=== PATIENT | female | born 1935 | race Hispanic/Latino ===

== ENCOUNTER 2017-09-19 19:42 | Emergency (ER) | payer OTHER ==
[~2017-09-19 19:42] MED LIST: CHOL400T33 PO; CLOT15CR62 TP; LEVO250T2 PO; LEVO50TA11 PO; LISI10TA7 PO; LOVA40TA2 PO; SERT50TA12 PO
[2017-09-19] MEDS ORDERED: CHARCOAL/SORBITOL 50 GM/240 ML SUSP ONE (20:50)
== END 2017-09-20 01:40 | disposition home or self-care (01) ==
LOC: EDH 19:42
DX: T44.4X1A Poisoning by predominantly alpha-adrenoreceptor agonists, accidental (unintentional), initial encounter (principal); T44.1X1A Poisoning by other parasympathomimetics [cholinergics], accidental (unintentional), initial encounter; T43.221A Poisoning by selective serotonin reuptake inhibitors, accidental (unintentional), initial encounter; Y92.098 Other place in other non-institutional residence as the place of occurrence of the external cause
CPT/HCPCS: 93005

== ENCOUNTER 2019-05-05 17:49 | Emergency (ER) | payer MEDICARE ==
[2019-05-05 18:13] LABS: APPEARANCE,URINE Clear (CLEAR); BILIRUBIN,URINE Negative (NEGATIVE); COLOR,URINE Yellow (YELLOW); GLUCOSE, URINE (UA) >=1000 mg/dL (NEGATIVE); KETONES,URINE Negative (NEGATIVE); LEUKOCYTE ESTERASE ,URINE Small (NEGATIVE); NITRATE,URINE Negative (NEGATIVE); OCCULT BLOOD,URINE Negative (NEGATIVE); PROTEIN,URINE Trace mg/dL (NEGATIVE)
[2019-05-05 18:20] LABS: BACTERIA,URINE Few /HPF (None Seen); RBC,URINE 0-1 /HPF (0-1)
[2019-05-05 18:21] LABS: MUCUS,URINE Few LPF (None Seen)
[2019-05-05 19:04] LABS: BASOPHILS % (AUTO) 0.8 % (0.0-5.0); HEMATOCRIT 42.3 % (36-48); LYMPHOCYTES % (AUTO) 30.4 % (21.0-51.0); MEAN CORPUSCULAR HEMOGLOBIN 30.9 pg (27.0-33.0); MEAN CORPUSCULAR HGB CONC 33.6 g/dL (32.0-36.0); MONOCYTES % (AUTO) 10.2 % (3.0-13.0); NEUTROPHILS % (AUTO) 55.6 % (40.0-77.0); PLATELET COUNT (AUTO) 257 K/uL (130-400); WHITE BLOOD COUNT (AUTO) 7.5 K/uL (4.8-10.8)
[2019-05-05 19:19] LABS: CREATININE 1.5 mg/dL (0.5-1.5)
[2019-05-05 19:23] LABS: ALBUMIN 3.1 g/dL (3.5-5.0); BILIRUBIN,DIRECT 0.1 mg/dL (0.0-0.3); BILIRUBIN,TOTAL 0.2 mg/dL (0.2-1.0); TOTAL PROTEIN, SERUM 7.4 g/dL (6.0-8.3)
[2019-05-05 19:39] LABS: INR 0.99 (0.85-1.15); PARTIAL THROMBOPLASTIN TIME 25.1 SEC (26.3-35.5); PROTHROMBIN TIME 10.4 SEC (9.6-11.6)
[2019-05-05 19:40] LABS: B-TYPE NATRIURETIC PEPTIDE 114 pg/mL (0-100)
[2019-05-05] MEDS ORDERED: SODIUM CHLORIDE 0.9% 500ML 500 ML IV ONE (20:07)
[2019-05-05] MEDS ORDERED: CEFTRIAXONE SODIUM 1 GM ONE (21:14)
== END 2019-05-06 00:11 | disposition home or self-care (01) ==
LOC: EDH 17:49
DX: N30.00 Acute cystitis without hematuria (principal); R55 Syncope and collapse; E11.9 Type 2 diabetes mellitus without complications; I10 Essential (primary) hypertension; F03.90 Unspecified dementia, unspecified severity, without behavioral disturbance, psychotic disturbance, mood disturbance, and anxiety; Z91.041 Radiographic dye allergy status; Z79.4 Long term (current) use of insulin
CPT/HCPCS: 36415; 70450; 71045; 80048; 80076; 81001; 82550; 83605 ×2; 83690; 83880; 84484; 85025; 85610; 85730; 87088; 87804 ×2; 93005; 96374; 99285; J0696; J7040

== ENCOUNTER 2020-11-17 03:57 | Observation (INO) | payer OTHER, MEDICARE ==
[~2020-11-17] VITALS: Ht 160 cm; Wt 75.2 kg
[~2020-11-17 03:57] MED LIST changes: +ATOR20TA65 PO; -CHOL400T33 PO; -CLOT15CR62 TP; +DONE5TAB33 PO; +FLUO10CA23 PO; +GABA-529 PO; +HUM10VIA SQ; +LEVE250T2 PO; -LEVO250T2 PO; +LEVO500T89 PO; -LISI10TA7 PO; +LORA-192 PO; -LOVA40TA2 PO; +MEMA5TAB42 PO; +METR500T PO; -SERT50TA12 PO
[2020-11-17 04:35] LABS: BASOPHILS % (AUTO) 0.5 % (0.0-5.0); EOSINOPHILS % (AUTO) 2.9 % (0.0-8.0); HEMATOCRIT 36.7 % (36-48); LYMPHOCYTES % (AUTO) 28.1 % (21.0-51.0); MEAN CORPUSCULAR HEMOGLOBIN 32.2 pg (27.0-33.0); MEAN CORPUSCULAR HGB CONC 34.1 g/dL (32.0-36.0); MEAN CORPUSCULAR VOLUME 94.6 fL (79-99); MONOCYTES % (AUTO) 10.4 % (3.0-13.0); NEUTROPHILS % (AUTO) 57.2 % (40.0-77.0); PLATELET COUNT (AUTO) 192 K/uL (130-400); RED BLOOD CELL COUNT(AUTO) 3.88 MIL/uL (4.00-5.50); RED CELL DISTRIBUTION WIDTH 18.3 % (11.0-15.5)
[2020-11-17 04:50] LABS: ALBUMIN 1.9 g/dL (3.5-5.0); BILIRUBIN,TOTAL 2.4 mg/dL (0.2-1.0); CREATININE 1.1 mg/dL (0.5-1.5); CRP QUANTITATIVE 57.2 mg/L (0.00-9.0); TOTAL PROTEIN, SERUM 7.3 g/dL (6.0-8.3)
[2020-11-17 04:54] LABS: APPEARANCE,URINE Cloudy (CLEAR); BILIRUBIN,URINE Negative (NEGATIVE); COLOR,URINE Yellow (YELLOW); GLUCOSE, URINE (UA) 250 mg/dL (NEGATIVE); KETONES,URINE Negative (NEGATIVE); LEUKOCYTE ESTERASE ,URINE Large (NEGATIVE); NITRATE,URINE Negative (NEGATIVE); OCCULT BLOOD,URINE Negative (NEGATIVE); PH,URINE 6.5 (5.0-8.0); PROTEIN,URINE Trace mg/dL (NEGATIVE); UROBILINOGEN,URINE 0.2 mg/dL (0.2-1.0)
[2020-11-17 04:54] LABS: POTASSIUM 2.7 mmol/L (3.5-5.1)
[2020-11-17 05:00] LABS: INR 1.39 (0.85-1.15); PROTHROMBIN TIME 14.7 SEC (9.6-11.6)
[2020-11-17 05:01] LABS: PARTIAL THROMBOPLASTIN TIME 31.9 SEC (26.3-35.5)
[2020-11-17 05:12] LABS: BACTERIA,URINE Few /HPF (None Seen); RBC,URINE None Seen /HPF (0-1); SQUAMOUS EPITHELIAL CELL,UR Many /HPF (0-2); YEAST,URINE BUDDING Few /HPF (None Seen)
[2020-11-17 05:14] LABS: B-TYPE NATRIURETIC PEPTIDE 1230 pg/mL (0-100)
[2020-11-17] MEDS ORDERED: POTASSIUM CHLORIDE 10% ELIXIR 20 MEQ/15 ML UDCUP ONE ×2 (05:23→10:42)
[2020-11-17] MEDS ORDERED: ZOSYN 3.375GM+NS 50ML 50 ML IV ONE ×3 (05:23→23:36)
[2020-11-17] MEDS ORDERED: LEVOFLOXACIN 750 MG/D5W 150 ML 150 ML ONE (05:24)
[2020-11-17] MEDS: POTASSIUM CHLORIDE 20 MEQ ERTAB PO SCH ×2 (09:30→15:30)
[2020-11-17] MEDS ORDERED: GLUCAGON 1MG KIT 1 MG ML IM PRN (09:30)
[2020-11-17] MEDS ORDERED: DEXTROSE 50%-WATER 50 ML DISP.SYRIN IV PRN (09:30)
[2020-11-17] MEDS ORDERED: VANCOMYCIN 1GM+NS 250ML 250 ML IV SCH (09:30)
[2020-11-17] MEDS ORDERED: VANCOMYCIN PROTOCOL PER PHARMACY IV SCH (09:30)
[2020-11-17] MEDS ORDERED: VANCOMYCIN 1GM+NS 250ML 250 ML IV ONE (10:42)
[2020-11-17] MEDS ORDERED: IPRATROPIUM/ALBUTEROL SULFATE 3 ML SOLUTION IH ONE ×2 (10:54→15:28)
[2020-11-17] MEDS: IPRATROPIUM/ALBUTEROL SULFATE 3 ML SOLUTION IH SCH ×4 (10:56→21:37)
[2020-11-17] MEDS ORDERED: ENOXAPARIN SODIUM 40 MG/0.4 ML SYRINGE SQ SCH (11:00)
[2020-11-17] MEDS: PANTOPRAZOLE 40 MG/VIAL IVP SCH (11:00)
[2020-11-17] MEDS ORDERED: ONDANSETRON HCL 4 MG/2 ML VIAL IVP PRN (11:00)
[2020-11-17] MEDS ORDERED: MAGNESIUM 2GM PREMIX 50ML 50 ML IV PRN (11:00)
[2020-11-17 11:25] LABS: MAGNESIUM 1.4 mg/dL (1.80-2.40); POTASSIUM 3.3 mmol/L (3.5-5.1)
[2020-11-17] MEDS: INSULIN R PO SS1 SQ SCH ×3 (11:30→21:00)
[2020-11-17] MEDS: ZOSYN 3.375GM+NS 50ML 50 ML IV SCH ×2 (13:00→21:00)
[2020-11-17] MEDS ORDERED: PHARMACY COMMUNICATION MISC SCH (13:15)
[2020-11-17] MEDS ORDERED: PANTOPRAZOLE 40 MG/VIAL ONE (13:49)
[2020-11-17] MEDS ORDERED: POTASSIUM CHLORIDE 10% ELIXIR 20 MEQ/15 ML UDCUP PO PRN (19:00)
[2020-11-17] MEDS ORDERED: POTASSIUM CHLORIDE 20MEQ/100ML 100 ML IV PRN ×2 (19:00)
[2020-11-17] MEDS ORDERED: POTASSIUM CHLORIDE 20 MEQ ERTAB PO PRN (19:00)
[2020-11-17] MEDS ORDERED: LIDOCAINE HCL-MPF 1% 2ML VIAL IV PRN ×2 (19:00)
[2020-11-18 00:13] VITALS: BP 112/42
[2020-11-18] MEDS: IPRATROPIUM/ALBUTEROL SULFATE 3 ML SOLUTION IH SCH ×6 (01:44→22:11)
[2020-11-18] MEDS ORDERED: ASPI-1197 PO (02:35)
[2020-11-18] MEDS ORDERED: GABA-529 PO (02:35)
[2020-11-18] MEDS ORDERED: PANT40TA54 PO (02:35)
[2020-11-18 03:56] VITALS: BP 90/36
[2020-11-18] MEDS: ZOSYN 3.375GM+NS 50ML 50 ML IV SCH ×3 (05:18→21:00)
[2020-11-18 05:22] LABS: HEMATOCRIT 32.9 % (36-48); MEAN CORPUSCULAR HEMOGLOBIN 31.8 pg (27.0-33.0); MEAN CORPUSCULAR HGB CONC 32.5 g/dL (32.0-36.0); MEAN CORPUSCULAR VOLUME 97.6 fL (79-99); RED BLOOD CELL COUNT(AUTO) 3.37 MIL/uL (4.00-5.50); RED CELL DISTRIBUTION WIDTH 18.6 % (11.0-15.5); WHITE BLOOD COUNT (AUTO) 7.5 K/uL (4.8-10.8)
[2020-11-18] MEDS: INSULIN R PO SS1 SQ SCH ×4 (05:39→20:57)
[2020-11-18 05:58] LABS: ALBUMIN 1.5 g/dL (3.5-5.0); BILIRUBIN,DIRECT 1.5 mg/dL (0.0-0.3); CREATININE 1.2 mg/dL (0.5-1.5); MAGNESIUM 1.4 mg/dL (1.80-2.40); POTASSIUM 4.4 mmol/L (3.5-5.1); TOTAL PROTEIN, SERUM 6.2 g/dL (6.0-8.3)
[2020-11-18 08:20] VITALS: BP 162/122
[2020-11-18] MEDS ORDERED: FUROSEMIDE 10 MG/ML 4ML VIAL IV SCH (09:00)
[2020-11-18] MEDS: ENOXAPARIN SODIUM 40 MG/0.4 ML SYRINGE SQ SCH (09:36)
[2020-11-18] MEDS: FUROSEMIDE 10 MG/ML 2ML VIAL IV SCH ×2 (09:37→20:52)
[2020-11-18] MEDS: PANTOPRAZOLE 40 MG/VIAL IVP SCH (09:37)
[2020-11-18] MEDS ORDERED: MAGNESIUM 2GM PREMIX 50ML 50 ML IV SCH (11:30)
[2020-11-18] MEDS: SUCRALFATE 1 GM TABLET PO SCH ×3 (11:30→20:52)
[2020-11-18 12:00] VITALS: BP 154/126
[2020-11-18 16:00] VITALS: BP 113/49
[2020-11-18] MEDS: FLUOXETINE HCL 10 MG CAPSULE PO SCH (17:00)
[2020-11-18 19:45] VITALS: BP 86/45
[2020-11-18] MEDS: MEMANTINE HCL 5 MG TABLET PO SCH (20:52)
[2020-11-18] MEDS: LEVETIRACETAM 250 MG TABLET PO SCH (20:52)
[2020-11-18] MEDS ORDERED: DONEPEZIL HCL 5 MG TAB PO SCH (21:00)
[2020-11-19 00:14] VITALS: BP 98/37
[2020-11-19] MEDS: IPRATROPIUM/ALBUTEROL SULFATE 3 ML SOLUTION IH SCH ×4 (01:59→13:18)
[2020-11-19 04:07] VITALS: BP 100/39
[2020-11-19] MEDS: ZOSYN 3.375GM+NS 50ML 50 ML IV SCH ×2 (05:03→13:43)
[2020-11-19 05:34] LABS: BASOPHILS % (AUTO) 0.5 % (0.0-5.0); EOSINOPHILS % (AUTO) 4.3 % (0.0-8.0); HEMATOCRIT 32.7 % (36-48); LYMPHOCYTES % (AUTO) 24.3 % (21.0-51.0); MEAN CORPUSCULAR HGB CONC 31.8 g/dL (32.0-36.0); MEAN CORPUSCULAR VOLUME 97.3 fL (79-99); MONOCYTES % (AUTO) 10.9 % (3.0-13.0); NEUTROPHILS % (AUTO) 59.4 % (40.0-77.0); PLATELET COUNT (AUTO) 189 K/uL (130-400); RED BLOOD CELL COUNT(AUTO) 3.36 MIL/uL (4.00-5.50); RED CELL DISTRIBUTION WIDTH 18.4 % (11.0-15.5); WHITE BLOOD COUNT (AUTO) 8.2 K/uL (4.8-10.8)
[2020-11-19 05:49] LABS: ALBUMIN 1.6 g/dL (3.5-5.0); BILIRUBIN,TOTAL 2.1 mg/dL (0.2-1.0); CREATININE 1.4 mg/dL (0.5-1.5); MAGNESIUM 2.5 mg/dL (1.80-2.40); POTASSIUM 3.5 mmol/L (3.5-5.1); TOTAL PROTEIN, SERUM 6.5 g/dL (6.0-8.3)
[2020-11-19] MEDS ORDERED: LEVOTHYROXINE 50 MCG TABLET PO SCH (06:30)
[2020-11-19] MEDS: INSULIN R PO SS1 SQ SCH ×3 (07:30→16:30)
[2020-11-19 07:53] VITALS: BP 96/40
[2020-11-19] MEDS ORDERED: GABAPENTIN 100 MG CAPSULE PO SCH (09:00)
[2020-11-19] MEDS ORDERED: ASPIRIN 81MG TAB.CHEW PO SCH (09:00)
[2020-11-19] MEDS: FUROSEMIDE 10 MG/ML 2ML VIAL IV SCH (09:01)
[2020-11-19] MEDS: SUCRALFATE 1 GM TABLET PO SCH ×3 (09:01→16:30)
[2020-11-19] MEDS: PANTOPRAZOLE 40 MG/VIAL IVP SCH (09:01)
[2020-11-19] MEDS: FLUOXETINE HCL 10 MG CAPSULE PO SCH (09:02)
[2020-11-19] MEDS: ENOXAPARIN SODIUM 40 MG/0.4 ML SYRINGE SQ SCH (09:02)
[2020-11-19] MEDS: LEVETIRACETAM 250 MG TABLET PO SCH (09:02)
[2020-11-19] MEDS: MEMANTINE HCL 5 MG TABLET PO SCH (09:02)
[2020-11-19 12:16] VITALS: BP 102/38
[2020-11-19] MEDS ORDERED: AMOX-426 PO (14:41)
[2020-11-19 16:20] VITALS: BP 99/47
== END 2020-11-19 18:00 ==
LOC: EDH 03:57 → EDHIP 05:28 → 3DH 23:40
PROVIDERS: ADMIT Internal Medicine; ATTEND Internal Medicine
DX: A41.9 Sepsis, unspecified organism (principal); Z20.822 Contact with and (suspected) exposure to COVID-19; J18.9 Pneumonia, unspecified organism; E83.42 Hypomagnesemia; N39.0 Urinary tract infection, site not specified; E11.9 Type 2 diabetes mellitus without complications; I50.9 Heart failure, unspecified; E87.6 Hypokalemia; E43 Unspecified severe protein-calorie malnutrition; R74.01 Elevation of levels of liver transaminase levels; F03.90 Unspecified dementia, unspecified severity, without behavioral disturbance, psychotic disturbance, mood disturbance, and anxiety; I11.0 Hypertensive heart disease with heart failure; K80.50 Calculus of bile duct without cholangitis or cholecystitis without obstruction; E03.9 Hypothyroidism, unspecified; K76.0 Fatty (change of) liver, not elsewhere classified; F41.9 Anxiety disorder, unspecified; Z86.16 Personal history of COVID-19; Z95.5 Presence of coronary angioplasty implant and graft; Z90.49 Acquired absence of other specified parts of digestive tract; Z90.710 Acquired absence of both cervix and uterus; Z79.4 Long term (current) use of insulin; Z79.82 Long term (current) use of aspirin; Z79.899 Other long term (current) drug therapy; Z91.041 Radiographic dye allergy status
CPT/HCPCS: 36415 ×3; 71045; 76700; 80048; 80053 ×2; 80076; 81001; 82948 ×11; 83605 ×3; 83690; 83735 ×3; 83880 ×2; 84132; 84145; 84484; 85025 ×2; 85027; 85610; 85730; 86140; 87040 ×2; 87088; 87426; 92610; 93005; 93306; 94640 ×14; 94664; 96365; 96366 ×2; 96368; 96372 ×2; 96375; 96376 ×2; 97039 ×2; 97161; 97530; 99285; C9113 ×3; G0378 ×55; G8979; G8980; G8981; G8982; G8983; J1650 ×2; J1815 ×3; J1940 ×3; J1956; J2543 ×7; J3370; J3475; U0003